=== PATIENT | male | born 1950 | race Caucasian/White ===

== ENCOUNTER 2021-08-20 09:52 | Outpatient (CLI) | payer MEDICARE, SELFPAY ==
--- NOTE | ~2021-08-20 | US_ITS ---
US venous doppler LE RT DATE: 08/20/2021 10:37 INDICATION: Pain and swelling of right lower extremity TECHNIQUE: Real-time and color flow imaging and Doppler analysis of the veins of the right lower extr emity COMPARISON: None FINDINGS: The right greater saphenous vein is patent. The common femoral and deep femoral veins are p atent. Paired femoral veins are noted with intraluminal thrombus in the distal aspect of one femoral vein. T here is intraluminal thrombus of the popliteal and posterior tibial and peroneal veins with incomplet e no compression. IMPRESSION: Deep venous thrombosis of the distal femoral vein, popliteal, posterior tibial and perone al veins I instructed Lanie, the technologist infectious disease, to direct the patient to the emergency room for furt her care on 08/18/2021 at 1045 hours. Reviewed, dictated and finalized at [facility]. Reviewed, dictated and finalized at [facility]. IMPRESSION: Deep venous thrombosis of the distal femoral vein, popliteal, poste rior tibial and peroneal veins I instructed Lanie, the technologist infectious disease, to direct the patient to the e mergency room for further care on 08/18/2021 at 1045 hours.
== END 2021-08-20 09:53 | disposition home or self-care (01) ==
PROVIDERS: PCP Family Medicine Adolescent Medicine; Visit Provider Family Medicine Adolescent Medicine
DX: M79.89 Other specified soft tissue disorders (principal); I82.411 Acute embolism and thrombosis of right femoral vein; I82.431 Acute embolism and thrombosis of right popliteal vein; I82.441 Acute embolism and thrombosis of right tibial vein; I82.451 Acute embolism and thrombosis of right peroneal vein
CPT/HCPCS: 93971

== ENCOUNTER 2021-09-24 14:10 | Outpatient (CLI) | payer MEDICARE, SELFPAY ==
--- NOTE | ~2021-09-24 | US_ITS ---
EXAMINATION: US venous doppler LE RT DATE: 09/24/2021 14:41 INDICATION: Right lower limb swelling. TECHNIQUE: Grayscale ultrasound images without and with compression and Doppler ultrasound images of the right lower extremity veins were obtained. COMPARISON: Ultrasound 08/20/2021 FINDINGS: The visualized portions of right common femoral vein, profunda (deep) femoral vein, peroneal veins, p osterior tibial veins, and greater saphenous vein outflow are patent. There is thrombus in right femo ral vein and popliteal and gastrocnemius veins. IMPRESSION: 1. Deep vein thrombosis involving right femoral, popliteal, and gastrocnemius veins with interval im provement in distribution. Reviewed, dictated and finalized at location [facility]. BUSINESS ANALYST IMPRESSION: 1. Deep vein thrombosis involving right femoral, popliteal, and gastrocnemius veins with interval improvement in distribution.
== END 2021-09-24 14:11 | disposition home or self-care (01) ==
PROVIDERS: PCP Family Medicine Adolescent Medicine; Visit Provider Family Medicine Adolescent Medicine
DX: Z86.718 Personal history of other venous thrombosis and embolism (principal)
CPT/HCPCS: 93971

== ENCOUNTER 2022-06-19 10:16 | Emergency (ER) | payer MEDICARE, SELFPAY ==
--- NOTE | 2022-06-19 10:17 | ED.EYEPROB ---
HPI - Eye Problem General Chief complaint: Eye Problems Stated complaint: right eye irritation Time Seen by Provider: 06/19/22 10:17 Source: patient Mode of arrival: ambulatory Limitations: no limitations History of Present Illness HPI Narrative: Mr. Ross is a 72 year old male patient presenting to the clinic today with c/o right eye irritation x 1 day He reports His symptoms started last night. He reports that he has localized pain to the right lower eyelid. Noticed some yellow crusting today. Also reports some blurry vision in the right eye. Visual acuity completed and he is 20/20 in the left eye with corrective eyewear and 20/40 in the right eye. Related Data Home Medications Medication Instructions Recorded Confirmed aspirin 06/19/22 omeprazole 06/19/22 Allergies Allergy/AdvReac Type Severity Reaction Status Date / Time No Known Allergies Allergy Unverified 03/04/22 08:48 Review of Systems Review of Systems: Pertinent positives per HPI. Patient denies any fever, chills, rash, headache, visual changes, dizziness, cough, runny nose, sore throat, shortness of breath, chest pain, palpitations, nausea, vomiting, diarrhea, constipation, abdominal pain, or any urinary issues. PMFSH Comments At the time of my signature, I reviewed and agree with the nursing past medical, surgical, social, and family history. There is no relevant family history pertinent to the patient complaint. Exam Narrative: General: Well-developed, well nourished, in no apparent distress Head: Normocephalic, atraumatic Eyes: Pupils equally round and reactive to light bilaterally, EOM intact, sclera and conjunctive clear, no discharge noted, right lower eyelid mildly swollen with beginnings of internal stye to the right mid lower eyelid-the area of the stye is a localized area of pain in the right lower eyelid. Cardio: Regular rate and rhythm, s1 and s2 normal, no murmur appreciated. Resp: Clear to auscultation bilaterally anteriorly and posteriorly, no rhonchi, rales, wheezing or rubs Course Course Emergency Course: Portions of this record may have been created with voice recognition software. Level of Care: Express Care Visit Vital Signs Vital signs: Vital Signs Temperature 36.8 C 06/19/22 10:22 Pulse Rate 72 06/19/22 10:22 Respiratory Rate 16 06/19/22 10:22 Blood Pressure 149/81 H 06/19/22 10:22 Pulse Oximetry 100 06/19/22 10:22 Oxygen Delivery Room Air 06/19/22 10:22 Temperature 36.8 C 06/19/22 10:22 Pulse Rate 72 06/19/22 10:22 Respiratory Rate 16 06/19/22 10:22 Blood Pressure 149/81 H 06/19/22 10:22 Pulse Oximetry 100 06/19/22 10:22 Oxygen Delivery Room Air 06/19/22 10:22 Vital signs reviewed MDM - Eye Problem MDM Narrative Medical decision making narrative: At the time of visit patient is resting comfortably on the exam table. Discharge Plan Discharge Clinical Impression: Internal hordeolum Qualifiers: Laterality: right Eyelid: lower Qualified Code(s): H00.022 - Hordeolum internum right lower eyelid Patient Disposition: Home, Self-Care Condition: Stable Instructions: Antibiotic Form, Strosy (ED), How to Use Eye Drops (ED) Additional Instructions: Polytrim eye drops as prescribed. May apply warm compresses to the affected eye Take tylenol/motrin as needed for pain Follow up with your PCP in 3-5 days if symptoms persist or sooner if they worsen. Prescriptions: New polymyxin B sulf-trimethoprim [Polytrim] 10,000 unit- 1 mg/mL drops 1 drp RIGHT EYE Q3H 7 Days Qty: 10 0RF Rx Instructions: while awake; do not exceed 6 doses in 24 hours No Action aspirin omeprazole atorvastatin 20 mg tablet 20 mg PO DAILY Qty: 90 2RF Follow-up/Referrals: Dave Schrader MD [Primary Care Provider] - Time of Disposition: 10:32 Quality NIHSS Nursing Documentation ED NIHSS nursing documentation: reviewed/
[2022-06-19 10:22] VITALS: BP 149/81; PULSE 72; RESP 16; TEMP 36.8; O2SAT 100
== END 2022-06-19 10:40 | disposition home or self-care (01) ==
PROVIDERS: Emergency Provider Nurse Practitioner Family; PCP Family Medicine Adolescent Medicine
DX: H00.022 Hordeolum internum right lower eyelid (principal); E78.00 Pure hypercholesterolemia, unspecified
CPT/HCPCS: 99213; G0463

== ENCOUNTER → 2022-10-26 08:35 | Outpatient (CLI) | payer MEDICARE, SELFPAY ==
--- NOTE | ~2022-10-26 | XR_ITS ---
EXAMINATION: XR chest 2V Exam Date/Time: 10/26/2022 8:38 REFRIGERATION ENGINEER HISTORY: cough for 5-6 months Comparison: 05/22/2016. RESULT: Lines, tubes, and devices: None. Lungs and pleura: Clear. Cardiomediastinal silhouette: Stable. Other: No acute osseous or upper abdominal finding. IMPRESSION: No acute cardiopulmonary process. Reviewed, dictated and finalized at location [facility]. IGERATION ENGINEER
== END ==
PROVIDERS: PCP Family Medicine Adolescent Medicine; Visit Provider Family Medicine Adolescent Medicine
DX: R05.9 Cough, unspecified (principal)
CPT/HCPCS: 71046

== ENCOUNTER 2022-12-14 06:39 | Day surgery (SDC) | payer MEDICARE, SELFPAY ==
[2022-12-02 13:33] VITALS: BMI 30.3
--- NOTE | 2022-12-14 07:06 | WPDANESEPPF ---
Anes - Initial Pre Proc Eval Procedure: Operation Date: 12/14/22 09:30 Proposed Procedures p Screening Colonoscopy - Da Farias MD Date/Time: 12/14/22 07:06 Surgeon: Da Farias MD Pre Op Diagnosis: HX Colon Polyp and Family HX Colon Cancer Patient Data Age: 72 Gender: M Height: 1.78 m Weight: 96 kg Allergies Allergy/AdvReac Type Severity Reaction Status Date / Time No Known Allergies Allergy Verified 12/14/22 08:18 Home Medications Medication Instructions Recorded Confirmed Type aspirin 81 mg PO DAILY 06/19/22 12/14/22 History omeprazole 20 mg PO DAILY 06/19/22 12/14/22 History sodium,potassium,mag sulfates 17.5 See Rx Instructions PO .COMPLEX 10/28/22 12/14/22 Rx gram-3.13 gram-1.6 gram oral soln #354 mL (Suprep Bowel Prep Kit) atorvastatin 20 mg tablet 20 mg PO DAILY #90 tabs 12/07/22 12/14/22 Rx Patient hx anesthesia problems: none Family hx anesthesia problems: none Results Review: All pre-operative results and documents have been reviewed as part of the pre-operative evaluation. 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 History of DVT (deep vein thrombosis) (08/2021) Pure hypercholesterolemia, unspecified Surgical History Surgical History (Updated 10/21/22 @ 16:16 by Dave Schrader MD) History of appendectomy (1982) Family History Family History (Updated 06/22/22 @ 07:52 by Carol Bejarano) Father , age 93 Carcinoma of colon Mother Skin cancer Sibling Skin cancer Social History Social History Smoking status: Never smoker Alcohol intake: current Substance use: never Substance use type: does not use Living arrangements: with family Spiritual care concerns: No Anes - Eval Final PreProcedure Day of Procedure 12/14/22 07:06 Patient weight: obese Heart: regular rate and rhythm Lungs: clear to auscultation Airway: Mallampati scale class II Neurological: alert and oriented Last oral intake: >/= 8 hours ASA classification: II Emergent: no Anesthetic plan: proceed Anesthesia type and monitoring: general GIVS and standard monitoring Results Review: All pre-operative results and documents have been reviewed as part of the pre-operative evaluation. Informed Consent: The patient's anesthetic plan and its attendant risks and benefits were discussed with the patient/family/POA. Questions were solicited and answers provided to the satisfaction of the patient/family/POA.
[2022-12-14 08:05] VITALS: BP 126/82; PULSE 92; RESP 18; TEMP 37.2; O2SAT 100
[2022-12-14] MEDS: LACTATED RINGERS 1,000 ML 150 ML IV CONT (08:26)
--- NOTE | 2022-12-14 08:57 | PM.HPGS ---
History of Present Illness History of Present Illness Consent: Risks, benefits, and alternatives have been discussed and questions answered. Patient agrees to proceed with procedure. Chief complaint: HX Colon Polyp Narrative: Natanael Ross is a 72 year old male Presents for screening colonoscopy. Patient has a history of adenomatous colon polyp removed from the colon 2016. Patient's current weight appetite and bowel movements are normal. Patient denies abdominal pain. He has had no bleeding. Family history is significant his father had a tumor in the small bowel causing obstruction. And in his 90s. Patient gives no family history of colon cancer within the family. Review of Systems Review of Systems: Review of systems noncontributory. 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 History of DVT (deep vein thrombosis) (08/2021) Pure hypercholesterolemia, unspecified Surgical History Surgical History (Updated 10/21/22 @ 16:16 by Dave Schrader MD) History of appendectomy (1982) Family History Family History (Updated 06/22/22 @ 07:52 by Carol Bejaarno) Father , age 93 Carcinoma of colon Mother Skin cancer Sibling Skin cancer Social History Social History Smoking status: Never smoker Alcohol intake: current Substance use: never Substance use type: does not use Living arrangements: with family Spiritual care concerns: No Meds Home Medications and Allergies Home Medications Medication Instructions Recorded Confirmed Type aspirin 81 mg PO DAILY 06/19/22 12/14/22 History omeprazole 20 mg PO DAILY 06/19/22 12/14/22 History sodium,potassium,mag sulfates 17.5 See Rx Instructions PO .COMPLEX 10/28/22 12/14/22 Rx gram-3.13 gram-1.6 gram oral soln #354 mL (Suprep Bowel Prep Kit) atorvastatin 20 mg tablet 20 mg PO DAILY #90 tabs 12/07/22 12/14/22 Rx Allergies Allergy/AdvReac Type Severity Reaction Status Date / Time No Known Allergies Allergy Verified 12/14/22 08:18 Vital Signs Vital Signs - 24 hr 12/14/22 08:05 Temperature 98.9 F Pulse Rate 92 Respiratory Rate 18 Blood Pressure 126/82 Pulse Oximetry 100 Oxygen Delivery Room Air Exam Narrative: Physical exam reveals patient to be alert. Vital signs stable. HEENT exam is unremarkable. Patient is anicteric. Lungs are clear to auscultation and percussion. Heart is without murmur or extra sounds. Abdominal exam bowel sounds are present soft nontender with no organomegaly. Digital external rectal exam normal. Assessment and Plan Assessment and plan (1) History of colon polyps: Code(s): Z86.010 - Personal history of colonic polyps Status: Acute Assessment and Plan: Patient has a history of adenomatous colon polyp removed from the colon 2016. Plan for surveillance colonoscopy now. Consider this at 5 year intervals.
[2022-12-14 09:49] VITALS: BP 104/76; PULSE 80; RESP 18; O2SAT 98
[2022-12-14 09:59] VITALS: BP 113/74; PULSE 79; RESP 18; O2SAT 99
[2022-12-14 10:24] VITALS: BP 113/76; PULSE 80; RESP 17; O2SAT 99
--- NOTE | 2022-12-14 10:36 | WPDANESPN ---
Anes - Prog Note Post-Op Date/Time: 12/14/22 10:36 Cardiovascular status: normal Respiratory status: normal Airway patency: baseline Mental status: baseline Post-Op hydration status: normal Vital Signs: Last Vital Signs Temp 37.2 C 12/14/22 08:05 Pulse 80 12/14/22 10:24 Resp 17 12/14/22 10:24 BP 113/76 12/14/22 10:24 Pulse Ox 99 12/14/22 10:24 O2 Del Method Room Air 12/14/22 10:24 Pain Score (VAS): 0 I/O: Intake & Output 12/13/22 12/14/22 12/14/22 23:59 07:59 15:59 Intake Total 400 Balance 400 Post-procedural complaints: none Patient Feedback: Patient satisfied with anesthetic care. Other Findings: Patient vital signs back to baseline. Patient denies nausea and vomiting. Patient's pain under control. Patient OK for discharge.
== END 2022-12-14 10:30 | disposition home or self-care (01) ==
PROVIDERS: PCP Family Medicine Adolescent Medicine; Visit Provider Internal Medicine Gastroenterology
PROC: 0DJD8ZZ Inspection of Lower Intestinal Tract, Via Natural or Artificial Opening Endoscopic (ICD-10-PCS; CPT 45378; principal; 2022-12-14 09:30)
DX: Z86.010 Personal history of colon polyps (principal)
CPT/HCPCS: 45385

== ENCOUNTER 2022-12-14 08:07 | Outpatient (NON) | payer MEDICARE, SELFPAY | END 2022-12-14 08:08 | disposition home or self-care (01) | PROVIDERS: PCP Family Medicine Adolescent Medicine; Visit Provider Internal Medicine Gastroenterology | DX: Z86.010 Personal history of colon polyps (principal) | CPT/HCPCS: 88305 ==

== ENCOUNTER 2025-05-09 07:38 | Outpatient (CLI) | payer MEDICARE, SELFPAY ==
--- NOTE | ~2025-05-09 | MR_ITS ---
MRI of the cervical spine Clinical History: Radiculopathy Technique: Axial T2-weighted and gradient images, and sagittal T1-weighted, T2-weighted, and STIR dimitry ges were acquired. Findings: There is no fracture or subluxation of the cervical spine. Vertebral bodies maintain normal height and alignment. No bone marrow signal abnormality seen. At C2-C3, there is no disc bulge or herniation. There is bilateral facet arthropathy, left worse than right. No spinal canal stenosis, cord compression, or neural foraminal narrowing. At C3-C4, there is mild disc osteophyte complex. There is advanced bilateral facet arthropathy, left worse than right. There is bilateral neural foraminal narrowing. No canal stenosis or cord compressio n. At C4-C5, there is severe left facet arthropathy and minimal right facet arthropathy. Neural foramina are preserved. No canal stenosis or cord compression. At C5-C6, there is extensive disc osteophyte complex with mild canal stenosis but no aurelio cord compr ession. There is probable impingement of the exiting bilateral nerve roots related to the disc protru sions. There is bilateral neural foraminal narrowing, left worse than right. At C6-C7, there is left foraminal disc osteophyte complex with bilateral facet arthropathy. There is bilateral neural foraminal narrowing, left worse than right. No canal stenosis or cord compression. No abnormal signal seen in the spinal cord. Paravertebral soft tissues are unremarkable. Impression: Moderate to advanced degenerative spondylosis C5-C6, as detailed above. Mild degenerative changes in the remainder of the cervical spine, as above. Reviewed, dictated and finalized at [facility]. Impression: Moderate to advanced degenerative spondylosis C5-C6, as detailed above. Mild degenerative changes in the remainder of the cervical spine, as above.
== END 2025-05-09 07:39 | disposition home or self-care (01) ==
LOC: MICIMG 07:39
PROVIDERS: PCP Family Medicine Adolescent Medicine; Visit Provider Family Medicine Adolescent Medicine
DX: M47.812 Spondylosis without myelopathy or radiculopathy, cervical region (principal)
CPT/HCPCS: 72141